=== PATIENT | male | born 1955 | race Caucasian/White ===

== ENCOUNTER 2020-03-05 19:50 | Emergency (ER) | payer OTHER ==
[2020-03-05 20:02] VITALS: TEMP 98; BMI 34.0
[2020-03-05] MEDS ORDERED: ONDANSETRON 4 MG/2 ML VIAL IVPB ONE (20:13)
[2020-03-05] MEDS ORDERED: SODIUM CHLORIDE 1,000 ML IV ONE (20:13)
[2020-03-05] MEDS ORDERED: KETOROLAC TROMETHAMINE 30 MG/1 ML VIAL IVPUSH ONE (20:13)
[2020-03-05] MEDS ORDERED: morphine CARPU-JECT 2 MG/1 ML DISP.SYRIN IVPUSH ONE (20:13)
[2020-03-05] MEDS ORDERED: KETOROLAC TROMETHAMINE 30 MG/1 ML VIAL ONE (20:15)
[2020-03-05] MEDS ORDERED: ONDANSETRON 4 MG/2 ML VIAL ONE (20:16)
[2020-03-05] MEDS ORDERED: morphine SULFATE 4 MG/ML VIAL ONE (20:19)
[2020-03-05 20:22] LABS: HEMATOCRIT 40.5 % (35.4-49); HEMOGLOBIN 13.3 GM/dl (11.7-16.9); MCH 28.7 pg (25.7-33.7); MCHC 32.7 g/dl (32.0-35.9); MEAN CELL VOLUME 87.7 fl (80-96); MEAN PLT VOLUME 8.4 fl (7.5-11.1); PLATELET COUNT 142 K/MM3 (134-434); RBC 4.62 M/mm3 (4.00-5.60); RDW 15.9 % (11.9-15.9)
[2020-03-05 20:28] LABS: ALBUMIN 4.7 g/dl (3.4-5.0); BILIRUBIN,TOTAL 2.9 mg/dl (0.2-1); CALCIUM 9.2 mg/dl (8.5-10); TOT PROT 6.9 g/dl (6.4-8.2)
[2020-03-05 20:43] LABS: PLATELET ESTIMATE ADEQUATE
[2020-03-05 20:45] LABS: POTASSIUM 4.4 mmol/L (3.5-5.1)
--- NOTE | 2020-03-05 21:39 | PDOC ---
Documentation entered by Elizabeth Boateng SCRIBE, acting as scribe for Chrystal Martin MD. Chrystal Martin MD: This documentation has been prepared by the Tasneem jaquez Xhesika, SCRIBE, under my direction and personally reviewed by me in its entirety. I confirm that the documentation accurately reflects all work, treatment, procedures, and medical decision making performed by me. History of Present Illness - General Chief Complaint: Chest Pain Stated Complaint: CHEST, ABD PAIN Time Seen by Provider: 03/05/20 19:56 History Source: Patient Exam Limitations: No Limitations - History of Present Illness Initial Comments: 03/05/20 20:00 The patient is a 65 year old male, with a significant PMH of pre-DM, CAD, and HTN who presents to the emergency department with RUQ abdominal pain since this morning. Pt states he ate some cantaloupe and peanuts which he believes triggered his pain. Pt states his abdominal pain is worse when laying down, alleviated when sitting and burping. Pt reports associated SOB secondary to the pain. Pt states his last meal was salmon and meat lasagna around 2pm. PAST SURGICAL HISTORY: no significant history FAMILY HISTORY: family history of diverticulitis SOCIAL HISTORY: Pt lives with family and is employed. MEDICATIONS: reviewed ALLERGIES: As per nursing notes 03/05/20 21:38 Assessment and plan: This is a 65-year-old male who comes in complaining of right upper quadrant abdominal pain since 10 AM this morning. Patient has a history significant for CLL. On exam patient was tender over his gallbladder and right upper quadrant. Gallbladder ultrasound was ordered in addition to labs. Patient has a 24,000 white count however patient said for him that is not elevated secondary to his CLL Patient's liver enzymes were also elevated it is unclear whether this may be secondary to a gallbladder problem or his CLL Past History - Medical History Allergies/Adverse Reactions: Allergies Allergy/AdvReac Type Severity Reaction Status Date / Time Penicillins Allergy Rash Verified 03/05/20 19:51 Home Medications: Ambulatory Orders Ascorbate Calcium [Vitamin C] 500 mg PO DAILY 03/05/20 Aspirin [Aspirin EC] 81 mg PO DAILY 03/05/20 Atorvastatin Ca [Lipitor] 80 mg PO HS 03/05/20 Lisinopril 5 mg PO DAILY 03/05/20 Metoprolol Succinate [Toprol Xl] 25 mg PO DAILY 03/05/20 Vitamin B Complex 1 each PO DAILY 03/05/20 Cancer: Yes (PROSTATE SEEDS) Cardiac Disorders: Yes (CAD) COPD: No Diabetes: Yes (PREDIABETIC) - Psycho-Social/Smoking History Smoking History: Never smoked Have you smoked in the past 12 months: No Information on smoking cessation initiated: No - Substance Abuse Hx (Audit-C & DAST Scrn) How often the patient has a drink containing alcohol: Monthly or less Score: In Men: 4 or > Positive; In Women: 3 or > Positive: 1 Screen Result (Pos requires Nsg. Audit-10AR): Negative In the last yr the pt used illegal drug/Rx for NonMed reason: No Score: Yes response is considered Positive: 0 Screen Result (Positive result requires Nsg. DAST-10): Negative Review of Systems - Review of Systems Able to Perform ROS?: Yes Comments:: 03/05/20 20:01 General: No fevers or chills, no weakness, no weight loss HEENT: No change in vision. No sore throat,. No ear pain CardioVascular: No chest pain.+shortness of breath Respiratory:No cough, or wheezing. Gastrointestinal: no nausea, vomiting, diarrhea or constipation, No rectal bleeding. +RUQ abdominal pain Genitourinary: No dysuria, hematuria, or frequency Musculoskeletal: No joint or muscle pain or swelling Neurologic: No headache, vertigo, dizziness or loss of consciousness Psychiatric: nor depression Skin: No rashes or easy bruising Endocrine: no increased thirst or abnormal weight change Allergic: no skin or latex allergy All other systems reviewed and normal *Physical Exam - Vital Signs Last Vital Signs Temp Pulse Resp BP Pulse Ox 98 F 62 18 146/81 98 03/05/20 19:50 03/05/20 19:50 03/05/20 19:50 03/05/20 19:50 03/05/20 19:50 - Physical Exam 03/05/20 20:06 General: Well-nourished well-developed individual. +moderate distress. +obese. HEENT: Throat: Normal, tonsils normal, no erythema or exudate Neck: Supple, no meningeal signs, no lymphadenopathy Eyes::Pupils equal reactive and round, extraocular motion intact Chest: Nontender to palpation Cardiac: S1-S2 normal, regular rate and rhythm, no murmurs rubs or gallops Respiratory: Lungs clear to auscultation bilateral. Abdomen: +RUQ abdominal pain tenderness to palpation. +bowel sounds present but decreased. no guarding, no rebound. Extremities: Warm, dry, no cyanosis, clubbing, or edema Skin: No rashes Neuro: Alert and oriented x3, nonfocal exam, grossly intact, normal gait Psych: Normal mood and affect ED Treatment Course - LABORATORY CBC & Chemistry Diagram: 03/05/20 20:10 03/05/20 20:10 Discharge - Discharge Information Problems reviewed: Yes Clinical Impression/Diagnosis: Gallstones Condition: Guarded Disposition: HOME - Admission No - Follow up/Referral Referrals: ON STAFF,NOT [Primary Care Provider] - - Patient Discharge Instructions Additional Instructions: Follow-up with your primary care doctor for a referral to a surgeon to have your gallbladder removed. Adhere to a no fat diet until you have your gallbladder removed as any fat in your diet can cause the gallbladder to flareup Return to the emergency department immediately with ANY new, persistent or worsening symptoms. Continue any medications as previously prescribed by your physician. You should follow up with your primary doctor as soon as possible regarding today's emergency department visit. . Please make sure your doctor reviews the results of your emergency evaluation. Thank you for coming to the Emergency Department today for your care. It was a pleasure to see you today. Please note that your evaluation is INCOMPLETE until you follow-up with your doctor. - Post Discharge Activity
[2020-03-05 23:44] VITALS: BP 120/78; PULSE 78
--- NOTE | 2020-03-06 09:24 | EKG ---
Test Reason : Blood Pressure : / mmHG Vent. Rate : 059 BPM Atrial Rate : 059 BPM P-R Int : 152 ms QRS Dur : 094 ms QT Int : 436 ms P-R-T Axes : 043 -17 057 degrees QTc Int : 431 ms SINUS BRADYCARDIA INCOMPLETE RIGHT BUNDLE BRANCH BLOCK CANNOT RULE OUT ANTEROSEPTAL INFARCT , AGE UNDETERMINED ABNORMAL ECG NO PREVIOUS ECGS AVAILABLE Confirmed by Daniel Wyatt MD ([id number]) on 03/06/2020 9:23:23 AM Referred By: DR CARCAMO Confirmed By:Daniel Wyatt MD
== END 2020-03-05 23:44 | disposition home or self-care (01) ==
LOC: SUPCPDRO 19:50 → FER 19:50
PROC: 3E033NZ Introduction of Analgesics, Hypnotics, Sedatives into Peripheral Vein, Percutaneous Approach (ICD-10-PCS; principal; 2020-03-05)
PROC: 3E033GC Introduction of Other Therapeutic Substance into Peripheral Vein, Percutaneous Approach (ICD-10-PCS; 2020-03-05)
PROC: 3E0337Z Introduction of Electrolytic and Water Balance Substance into Peripheral Vein, Percutaneous Approach (ICD-10-PCS; 2020-03-05)
DX: K80.20 Calculus of gallbladder without cholecystitis without obstruction (principal)
CPT/HCPCS: 36415; 74177-TC; 76705-TC; 80053; 81003; 82550; 83605; 83690; 84484; 85025; 93005; 99285-25; Q9967

== ENCOUNTER 2022-09-10 19:55 | Emergency (ER) | payer OTHER ==
[2022-09-10 20:28] VITALS: BP 133/78; PULSE 60; RESP 18; TEMP 99.2; BMI 32.5
== END 2022-09-10 21:37 | disposition home or self-care (01) ==
LOC: FER 19:55
DX: S62.102A Fracture of unspecified carpal bone, left wrist, initial encounter for closed fracture (principal); W19.XXXA Unspecified fall, initial encounter
CPT/HCPCS: 73110-TC-LT-FY; 73130-TC-LT-FY; 99283-25

== ENCOUNTER 2024-03-19 11:35 | Observation (INO) | payer OTHER, MEDICARE ==
[2024-03-19 12:13] LABS: HEMATOCRIT 39.3 % (35.4-49); HEMOGLOBIN 11.9 G/dL (11.7-16.9); MCH 27.4 pg (25.7-33.7); MCHC 30.3 g/dl (32.0-35.9); MEAN CELL VOLUME 90.5 fl (80-96); MEAN PLT VOLUME 10.4 fl (7.5-11.1); PLATELET COUNT 100.6 10^3/uL (134-434); RBC 4.34 10^6/uL (4.00-5.60); RDW 18.3 % (11.9-15.9)
[2024-03-19 12:29] LABS: INR 1.21 (0.83-1.09); PROTHROMBIN TIME (PATIENT) 13.7 SEC (9.7-13.0)
[2024-03-19 12:38] LABS: ALBUMIN 4.8 g/dl (3.4-5.0); ALK PHOS 65 U/L (45-117); ANION GAP 7 mmol/L (4-13); BILIRUBIN,TOTAL 0.9 mg/dl (0.2-1); CALCIUM 9.9 mg/dl (8.5-10.1); CHLORIDE 105 mmol/L (98-107); CO2 27 mmol/L (21-32); GLUCOSE,RANDOM 103 mg/dl (74-106); POTASSIUM 4.5 mmol/L (3.5-5.1); SGOT/AST 22 U/L (15-37); SGPT/ALT 18 U/L (7-52); SODIUM 139 mmol/L (136-145); TOT PROT 6.8 g/dl (6.4-8.2)
[2024-03-19 13:11] LABS: WHITE BLOOD COUNT 91.4 10^3/uL (4.0-10.8)
[2024-03-19 13:26] LABS: ANISOCYTOSIS 1+
[2024-03-19 13:27] LABS: OVALOCYTE 1+; PLATELET ESTIMATE DECREASED; SMUDGE CELLS MODERATE
[2024-03-19] MEDS: ASPIRIN 81 MG CHEWABLE TABLETS PO ONE (14:30)
[2024-03-19] MEDS ORDERED: ACETAMINOPHEN 325 MG TABLET (FP) PO PRN (15:33)
[2024-03-19 15:49] VITALS: BMI 34.7
[2024-03-19] MEDS: EZETIMIBE 10 MG TABLET (FP) PO SCH (21:21)
[2024-03-19] MEDS: ATORVASTATIN CA 80 MG TABLET (FP) PO SCH (21:21)
[2024-03-19] MEDS: APIXABAN 5 MG TABLET PO SCH (21:21)
[2024-03-19] MEDS: SACUBITRIL/VALSARTAN 24 MG-26 MG TABLET PO SCH (21:21)
[2024-03-19 22:31] VITALS: RESP 16
[2024-03-20 06:21] VITALS: BP 99/58; PULSE 71; TEMP 98.1
[2024-03-20 09:22] LABS: HEMATOCRIT 36.3 % (35.4-49); HEMOGLOBIN 11.1 G/dL (11.7-16.9); MCH 27.7 pg (25.7-33.7); MCHC 30.6 g/dl (32.0-35.9); MEAN CELL VOLUME 90.4 fl (80-96); MEAN PLT VOLUME 10.5 fl (7.5-11.1); PLATELET COUNT 80.4 10^3/uL (134-434); RBC 4.01 10^6/uL (4.00-5.60); RDW 17.7 % (11.9-15.9)
[2024-03-20 09:52] LABS: WHITE BLOOD COUNT 92.6 10^3/uL (4.0-10.8)
[2024-03-20] MEDS ORDERED: SPIRONOLACTONE 25 MG TABLET PO SCH (10:00)
[2024-03-20 10:28] LABS: ALBUMIN 4.4 g/dl (3.4-5.0); BILIRUBIN,TOTAL 1.1 mg/dl (0.2-1); CALCIUM 9.7 mg/dl (8.5-10.1); POTASSIUM 4.3 mmol/L (3.5-5.1); TOT PROT 6.1 g/dl (6.4-8.2)
[2024-03-20 10:38] LABS: ANISOCYTOSIS 1+; OVALOCYTE 1+; PLATELET ESTIMATE DECREASED; SMUDGE CELLS MODERATE
[2024-03-20 11:13] LABS: N-TERMINAL BNP 505.1 pg/ml (5-125)
== END 2024-03-20 09:25 | disposition left against medical advice (07) ==
LOC: FER 11:35 → FM/S 13:23
DX: I11.9 Hypertensive heart disease without heart failure (principal); R07.9 Chest pain, unspecified; I25.10 Atherosclerotic heart disease of native coronary artery without angina pectoris; E78.5 Hyperlipidemia, unspecified; C91.10 Chronic lymphocytic leukemia of B-cell type not having achieved remission; Z95.810 Presence of automatic (implantable) cardiac defibrillator; Z85.46 Personal history of malignant neoplasm of prostate; Z79.01 Long term (current) use of anticoagulants; Z88.0 Allergy status to penicillin
CPT/HCPCS: 36415; 71045-TC-FY; 71046-TC-FY; 80053; 80061; 82550; 83036; 83880; 84439; 84443; 84484; 85027; 85610; 93005; 99285-25; G0378